=== PATIENT | male | born 1985 | race Caucasian/White ===

== ENCOUNTER 2023-12-17 02:30 | Emergency (ER) | payer SELFPAY | END 2023-12-17 03:55 | LOC: JD.ED 02:30 | DX: F10.129 Alcohol abuse with intoxication, unspecified (principal) | CPT/HCPCS: 36415; 80307; 99283 ==

== ENCOUNTER 2024-03-07 04:25 | Emergency (ER) | payer SELFPAY ==
[2024-03-07] MEDS: LORazepam 1 MG Tab PO ONE ×2 (05:11→13:21)
[2024-03-07 05:31] LABS: BASOPHILS PERCENT AUTO 0.7 % (0.0-1.0); EOSINOPHILS ABSOLUTE AUTO 0.1 K/mm3 (0.0-0.4); EOSINOPHILS PERCENT AUTO 2.4 % (0.0-6.0); HEMATOCRIT 43.2 % (42.0-52.0); HEMOGLOBIN 14.5 gm/dl (14.0-18.0); IMMATURE GRAN ABSOLUTE AUTO 0.01 K/mm3 (0.00-0.05); IMMATURE GRAN PERCENT AUTO 0.2 % (0.0-0.4); LYMPHOCYTES ABSOLUTE AUTO 1.9 K/mm3 (1.0-4.8); MEAN CORPUSCULAR HEMOGLOBIN 29.7 pg (28.0-32.0); MEAN CORPUSCULAR HGB CONC 33.6 g/dl (32.0-36.0); MEAN CORPUSCULAR VOLUME 88.5 fl (83.0-99.0); MEAN PLATELET VOLUME 8.6 fl (9.4-12.4); MONOCYTES ABSOLUTE AUTO 0.6 K/mm3 (0.0-0.8); MONOCYTES PERCENT AUTO 10.8 % (0.0-8.0); NEUTROPHILS ABSOLUTE AUTO 3.1 K/mm3 (1.8-7.7); NEUTROPHILS PERCENT AUTO 53.9 % (41.0-71.0); PLATELET COUNT,PLT 221 K/mm3 (150-400); RED BLOOD CELL COUNT 4.88 M/mm3 (4.52-5.90); WHITE BLOOD CELL COUNT,WBC 5.81 K/mm3 (3.9-11.3)
[2024-03-07 05:37] LABS: BARBITURATE SCREEN,URINE NEGATIVE (CUTOFF=200); BENZODIAZEPINES SCREEN,URINE NEGATIVE (CUTOFF=150); BUPRENORPHINE SCREEN,URINE NEGATIVE (CUTOFF=10); METHADONE SCREEN, URINE NEGATIVE (CUT0FF=200); METHAMPHETAMINES SCREEN, URINE PRESUMPTIVE POSITIVE (CUTOFF=500); OXYCODONE SCREEN,URINE NEGATIVE (CUT0FF=100); THC SCREEN,URINE 20 NG/ML PRESUMPTIVE POSITIVE (CUTOFF=50)
[2024-03-07 06:01] LABS: ALBUMIN 3.8 g/dl (3.4-5.0); ANION GAP 16.9 (5-15); BILIRUBIN TOTAL 0.8 mg/dL (0.2-1.0); BUN/CREATININE RATIO 9.2 (14-18); CALCIUM 8.4 mg/dL (8.5-10.1); CREATININE 1.2 mg/dL (0.7-1.3); EST CRCL DRUG DOSING (CG) 85.34 mL/min; ETHANOL BLOOD MEDICAL 0.33 gm% (0.00); MAGNESIUM 2.1 mg/dL (1.8-2.4); POTASSIUM,K 3.9 mEq/L (3.5-5.1); PROTEIN TOTAL,TP 7.5 g/dl (6.4-8.2); TSH 0.178 uIU/mL (0.358-3.74)
[2024-03-07 06:03] LABS: AMPHETAMINES SCREEN, URINE PRESUMPTIVE POSITIVE (CUTOFF=500)
[2024-03-07 06:29] LABS: T4 FREE 1.24 ng/dL (0.76-1.46)
[2024-03-07] MEDS ORDERED: Ondansetron 4 MG/2 ML SDV IVPUSH ONE (13:14)
[2024-03-07] MEDS ORDERED: LORazepam 2 MG/ML SDV IVPUSH ONE (13:15)
[2024-03-07] MEDS: Ondansetron 4 MG Tab.DIS PO ONE (13:21)
== END 2024-03-07 15:35 ==
LOC: JD.ED 04:25
DX: F32.A Depression, unspecified (principal); F10.120 Alcohol abuse with intoxication, uncomplicated; Y90.0 Blood alcohol level of less than 20 mg/100 ml
CPT/HCPCS: 36415; 80053; 80143; 80179; 80306; 80307; 83735; 84439; 84443; 85025; 99284; 99285; A9270-GY

== ENCOUNTER 2024-04-21 06:54 | Emergency (ER) | payer MEDICAID | END 2024-04-21 08:00 | disposition home or self-care (01) | LOC: JD.ED 06:54 | DX: K04.7 Periapical abscess without sinus (principal); Z79.899 Other long term (current) drug therapy | CPT/HCPCS: 99282 ==

== ENCOUNTER 2024-05-16 07:00 | Emergency (ER) | payer SELFPAY ==
[2024-05-16] MEDS: LORazepam 2 MG/ML SDV IVPUSH ONE (08:22)
[2024-05-16] MEDS: Sodium Chloride 0.9% 1,000 ML IV ONE (08:22)
[2024-05-16 08:34] LABS: BARBITURATE SCREEN,URINE NEGATIVE (CUTOFF=200); BENZODIAZEPINES SCREEN,URINE PRESUMPTIVE POSITIVE (CUTOFF=150); BUPRENORPHINE SCREEN,URINE NEGATIVE (CUTOFF=10); METHADONE SCREEN, URINE NEGATIVE (CUT0FF=200); METHAMPHETAMINES SCREEN, URINE PRESUMPTIVE POSITIVE (CUTOFF=500); OXYCODONE SCREEN,URINE NEGATIVE (CUT0FF=100); THC SCREEN,URINE 20 NG/ML NEGATIVE (CUTOFF=50)
[2024-05-16 08:36] LABS: AMPHETAMINES SCREEN, URINE PRESUMPTIVE POSITIVE (CUTOFF=500)
== END 2024-05-16 09:15 | disposition home or self-care (01) ==
LOC: JD.ED 07:00
DX: F15.90 Other stimulant use, unspecified, uncomplicated (principal); Z79.899 Other long term (current) drug therapy
CPT/HCPCS: 80306; 93005; 93010; 99284; 99285

== ENCOUNTER 2024-05-27 08:51 | Emergency (ER) | payer MEDICAID | END 2024-05-27 09:07 | LOC: JD.ED 08:51 | DX: Z02.89 Encounter for other administrative examinations (principal); F10.10 Alcohol abuse, uncomplicated; Z79.899 Other long term (current) drug therapy | CPT/HCPCS: 99282; 99283 ==